=== PATIENT | female | born 1975 | race Caucasian/White ===

== ENCOUNTER → 2021-09-05 08:16 | Outpatient (CLI) | payer OTHER, SELFPAY ==
--- NOTE | ~2021-09-05 | XR_ITS ---
EXAMINATION: XR chest 2V EXAM DATE: 09/05/2021 08:34 INDICATION: Cough for a month. TECHNIQUE: Frontal and lateral projections of the chest obtained and reviewed. Comparison is made to prior examination from 07/31/2017. FINDINGS: The lungs are clear. There are no pleural effusions. The cardiomediastinal silhouette is within normal limits. There is no pneumothorax suspected. The bones and soft tissues are unremarkab le. There is no significant interval change. IMPRESSION: No acute cardiopulmonary findings. Reviewed, dictated and finalized at location G. [employer]
== END ==
PROVIDERS: PCP Family Medicine; Visit Provider Family Medicine
DX: J40 Bronchitis, not specified as acute or chronic (principal)
CPT/HCPCS: 71046

== ENCOUNTER 2021-11-29 09:00 | Outpatient (CLI) | payer OTHER, SELFPAY ==
--- NOTE | ~2021-11-29 | US_ITS ---
EXAMINATION: US abdomen complete EXAM DATE: 11/29/2021 10:45 INDICATION: Elevated liver function tests. TECHNIQUE: Multiple grayscale and Doppler images of the complete abdomen were obtained (by a technolo gist who performed the scan) and subsequently reviewed. There is no prior study for comparison. FINDINGS: The abdominal aorta is normal in caliber. Visualized portion IVC is patent. The pancreatic head a nd body are normal in appearance. The pancreatic tail is not visualized. There is echogenic liver parenchyma, hepatic steatosis. There is a focal region in the left liver lo be measuring 1.2 x 0.7 x 1.4 cm, could be focal fatty sparing but this is not a characteristic locati on. Would favor benign histology given patient's age. There is no evidence of intrahepatic biliary duct dilation. Portal venous flow was seen in the hepatopedal, normal direction and has normal Doppl er waveform. Common bile duct measures 5 mm, which is normal. The gallbladder wall is normal in thickness, with ex pected amount of distention. No sonographic evidence of pericholecystic fluid. There is no cholelit hiases. Technologist performing exam reports patient did not demonstrate sonographic Rojas's sign. Please note that this sign is less reliable in patients who have received pain medication. Right kidney: There is normal contour and echogenicity. It measures 13.2 x 5.9 x 6.2 centimeters. There are no focal renal lesions identified. There is no hydronephrosis. Left kidney: There is normal contour and echogenicity. It measures 11.6 x 6.6 x 6.1 centimeters. T here are no focal renal lesions identified. There is no hydronephrosis. The spleen measures 10.6 centimeters and is morphologically normal. IMPRESSION: 1. Small nonspecific left liver lobe region, could be hepatic steatosis but mass not excludable. Opt ions include CT or MRI without and with contrast, or follow-up ultrasound in 6 months. 2. Hepatic steatosis. Reviewed, dictated and finalized at location B. IMPRESSION: 1. Small nonspecific left liver lobe region, could be hepatic steatosis but ma ss not excludable. Options include CT or MRI without and with contrast, or foll ow-up ultrasound in 6 months. 2. Hepatic steatosis.
--- NOTE | ~2021-11-29 | US_ITS ---
EXAMINATION: US pelvic complete w TV DATE: 11/29/2021 10:41 INDICATION: Pelvic pain TECHNIQUE: Multiple transabdominal and endovaginal sonographic images of the pelvis were obtained. COMPARISON: None. FINDINGS: There are changes of supracervical hysterectomy. Nabothian cysts are noted in the cervix. T he left ovary is not visualized however no left adnexal abnormality is seen. The right ovary measures 3.6 x 2.5 x 2.5 cm and contains a 2.1 cm cyst. There is normal vascular flow in the right ovary. The re is no free fluid in the pelvis. IMPRESSION: 1. No sonographic correlate for the patient's symptoms. Reviewed, dictated and finalized at location A.
== END 2021-11-29 09:01 | disposition home or self-care (01) ==
PROVIDERS: PCP Family Medicine; Visit Provider Physician Assistant
DX: R74.01 Elevation of levels of liver transaminase levels (principal); K76.0 Fatty (change of) liver, not elsewhere classified
CPT/HCPCS: 76700; 76830; 76856

== ENCOUNTER 2022-06-22 08:55 | Emergency (ER) | payer OTHER, SELFPAY ==
[2022-06-22 09:03] VITALS: BP 178/113; PULSE 96; RESP 16; TEMP 36.8; O2SAT 99
--- NOTE | 2022-06-22 09:16 | ED.URI ---
HPI - URI/Sore Throat General Chief Complaint: Upper Respiratory Infection Stated Complaint: Coughing Time Seen by Provider: 06/22/22 09:10 Source: patient Mode of arrival: ambulatory Limitations: no limitations History of Present Illness HPI Narrative: Kendra is a 47-year-old female patient presenting to the clinic today with complaints cough and sinus pressure x2 days. She reports that she is having a slight wheeze as well. Does have an albuterol inhaler that she uses occasionally for history of bronchitis cyst. States she gets bronchitis every fall. She reports that she had parathyroid surgery approximately 2 weeks ago and has a follow-up with her surgeon tomorrow MD elicited complaint: cough, rhinorrhea and nasal congestion Related Data Home Medications Medication Instructions Recorded Confirmed calcium carbonate 500 mg calcium 500 mg PO DAILY 06/22/22 06/22/22 (1,250 mg) tablet docusate sodium 100 mg capsule 100 mg PO DAILY 06/22/22 06/22/22 lisinopril 10 mg tablet 10 mg PO DAILY 06/22/22 06/22/22 Allergies Allergy/AdvReac Type Severity Reaction Status Date / Time doxycycline Allergy Rash Verified 06/22/22 09:22 Penicillins Allergy Rash Verified 06/22/22 09:22 Sulfa (Sulfonamide Allergy Rash Verified 06/22/22 09:22 Antibiotics) Review of Systems Review of Systems: Pertinent positives per HPI. Patient denies any fever, chills, rash, headache, visual changes, dizziness, cough, shortness of breath, chest pain, palpitations, nausea, vomiting, diarrhea, constipation, abdominal pain, or any urinary issues. PMFSH Comments At the time of my signature, I reviewed and agree with the nursing past medical, surgical, social, and family history. There is no relevant family history pertinent to the patient complaint. Exam Narrative: General: Well-developed, obese, in no apparent distress Head: Normocephalic, atraumatic Eyes: Pupils equally round and reactive to light bilaterally, EOM intact, sclera and conjunctive clear, no discharge, lids normal Ears: TMs intact, dull, red, ear canals clear, no drainage, grossly hearing normal. Nose: Nares patent, clear nasal discharge, moderate inflammation, maxillary and frontal sinus tenderness. Mouth: Oral pharynx without lesions or masses, good dentition, MMM. PND Neck: Supple, trachea midline, no enlargement of anterior or posterior cervical nodes, surgical dressing intact to the anterior neck from parathyroid surgery. Cardio: Regular rate and rhythm, s1 and s2 normal, no murmur appreciated. Resp: Clear to auscultation bilaterally, no rhonchi, rales, wheezing or rubs Course Course Emergency Course: Portions of this record may have been created with voice recognition software. Level of Care: Express Care Visit Vital Signs Vital signs: Vital Signs Temperature 36.8 C 06/22/22 09:03 Pulse Rate 96 06/22/22 09:03 Respiratory Rate 16 06/22/22 09:03 Blood Pressure 178/113 H 06/22/22 09:03 Pulse Oximetry 99 06/22/22 09:03 Oxygen Delivery Room Air 06/22/22 09:03 Temperature 36.8 C 06/22/22 09:03 Pulse Rate 96 06/22/22 09:03 Respiratory Rate 16 06/22/22 09:03 Blood Pressure 178/113 H 06/22/22 09:03 Pulse Oximetry 99 06/22/22 09:03 Oxygen Delivery Room Air 06/22/22 09:03 Vital signs reviewed MDM - URI/Sore Throat MDM Narrative Medical decision making narrative: At the time of the patient is resting comfortably on the exam table. I suspect patient has an upper respiratory infection / viral sinusitis. Supportive measures were discussed with the patient she voiced understanding of discharge instructions agrees to treatment plan Differential Diagnosis Differential diagnosis: Likely sinusitis, viral infection, influenza and pharyngitis Discharge Plan Discharge Clinical Impression: Upper respiratory infection, Viral sinusitis, PND (post-nasal drip) Patient Disposition: Home, Self-Care Condition: Stable Instru
== END 2022-06-22 09:26 | disposition home or self-care (01) ==
PROVIDERS: Emergency Provider Nurse Practitioner Family; PCP Family Medicine
DX: J06.9 Acute upper respiratory infection, unspecified (principal); J32.9 Chronic sinusitis, unspecified; R09.82 Postnasal drip; E78.00 Pure hypercholesterolemia, unspecified; I10 Essential (primary) hypertension; Z90.89 Acquired absence of other organs
CPT/HCPCS: 99213; G0463